=== PATIENT | male | born 1990 | race Caucasian/White ===

== ENCOUNTER 2017-08-12 21:36 | Inpatient (IN) | payer BC, OTHER ==
--- NOTE | 2017-08-12 21:43 | PDOC ---
Attending Attestation - HPI HPI: 08/12/17 21:49 The patient is a 27 year old male with a significant PMH of isolated panic attack (2014) who presents to the emergency department via EMS with SVT shortly prior to arrival. The patient reports lying down to go to sleep when he felt his heart racing with associated diaphoresis and midsternal chest pressure with associated tingling in the left arm. He denies any family cardiac history. Allergies: NKA PCP: None reported. - Physicial Exam PE: 08/12/17 21:49 GENERAL: Well developed, well nourished. Awake and alert. No acute distress. HEENT: Normocephalic, atraumatic. PERRLA, EOMI. No conjunctival pallor. Sclera are non- icteric. Moist mucous membranes. Oropharynx is clear. NECK: Supple. Full ROM. No JVD. Carotid pulses 2+ and symmetric, without bruits. No thyromegaly. No lymphadenopathy. CARDIOVASCULAR: Regular rate and rhythm. No murmurs, rubs, or gallops. Distal pulses are 2+ and symmetric. PULMONARY: No evidence of respiratory distress. Lungs clear to auscultation bilaterally. No wheezing, rales or rhonchi. ABDOMINAL: Soft. Non-tender. Non-distended. No rebound or guarding. No organomegaly. Normoactive bowel sounds. MUSCULOSKELETAL Normal range of motion at all joints. No bony deformities or tenderness. No CVA tenderness. EXTREMITIES: No cyanosis. No clubbing. No edema. No calf tenderness. SKIN: Warm and dry. Normal capillary refill. No rashes. No jaundice. NEUROLOGICAL: Alert, awake, appropriate. Cranial nerves 2-12 intact. No deficits to light touch and temperature in face, upper extremities and lower extremities. No motor deficits in the in face, upper extremities and lower extremities. Normoreflexic in the upper and lower extremities. Normal speech. Toes are downgoing bilaterally. Gait is normal without ataxia. PSYCHIATRIC: Cooperative. Good eye contact. Appropriate mood and affect. <Anand Vanessa - Last Filed: 08/12/17 22:04> - Resident Resident Name: Armando Lu - ED Attending Attestation I have performed the following: I have examined & evaluated the patient, The case was reviewed & discussed with the resident, I agree w/resident's findings & plan, Exceptions are as noted - Medical Decision Making 08/12/17 23:37 Pt will be admitted to Tele Obs for further evaluation <Dillon Luevano - Last Filed: 08/12/17 23:37> Heart Score/ECG Review #1 08/12/17 22:04 Vent rate 106 bpm Sinus tachycardia Otherwise normal ECG <Anand Vanessa - Last Filed: 08/12/17 22:04>
[2017-08-12] MEDS ORDERED: ADENOSINE 6 MG/2 ML VIAL IVPUSH ONE ×2 (21:51→21:52)
--- NOTE | 2017-08-12 22:13 | PDOC ---
History of Present Illness - General Chief Complaint: Chest Pain Stated Complaint: SVT Time Seen by Provider: 08/12/17 21:44 - History of Present Illness Initial Comments: 27 year old previously healthy male BIBEMS after sudden onset palpitations, diaphoresis, chest pain, and left arm numbness. Patient states that he was about to go to bed then had this sudden onset, non radiating 8/10 central chest pressure with some left arm numbness. EMS was immediately called and arrived within 20 minutes. They pushed 6 of adenosine after recognizing SVT in the upper 100s/ low 200s. 6 did not break his rhythm so another 12 was administer with successful break of SVT to sinus rhythm at 150s. On presentation to our ED he was in the upper 90s-low 100s apparently sinus with pressures in the 130s and SATing 99% on RA. He had not active complaints. Has never had this before and denies drug or significant EtOH use. Smokes cigars 2-3 x weekly. He has had a panic attack that was very different than this in 2015. His family history does not reveal cardiac pathologies or sudden unexplained . Denies recent fevers, chills, nausea vomiting, diarrhea, constipation, SOB, or other sick symptoms. 08/12/17 21:56 Past History - Past Medical History Allergies/Adverse Reactions: Allergies Allergy/AdvReac Type Severity Reaction Status Date / Time No Known Allergies Allergy Verified 08/12/17 21:39 Home Medications: Ambulatory Orders NK [No Known Home Medication] 08/12/17 - Suicide/Smoking/Psychosocial Hx Smoking History: Never smoked Information on smoking cessation initiated: No Hx Alcohol Use: No Drug/Substance Use Hx: No Review of Systems - Review of Systems Constitutional: Yes: Diaphoresis. No: Chills, Fever, Loss of Appetite HEENTM: No: Eye Pain, Blurred Vision Respiratory: No: Cough, Shortness of Breath, Wheezing Cardiac (ROS): Yes: Chest Pain, Irregular Heart Rate, Palpitations. No: Edema, Lightheadedness ABD/GI: No: Constipated, Diarrhea, Vomiting, Indigestion : No: Burning, Dysuria, Discharge Musculoskeletal: No: Back Pain, Joint Pain Integumentary: No: Bruising, Lesions, Lumps Neurological: Yes: Paresthesia. No: Headache, Numbness Psychiatric: Yes: Anxiety, Other (History of one previous panic attack). No: Depression Endocrine: No: Excessive Sweating *Physical Exam - Vital Signs Last Vital Signs Temp Pulse Resp BP Pulse Ox 102 H 16 139/84 96 08/12/17 21:39 08/12/17 21:39 08/12/17 21:39 08/12/17 21:39 - Physical Exam General Appearance: Yes: Nourished, Appropriately Dressed. No: Apparent Distress HEENT: positive: EOMI, [place], Normal ENT Inspection, Normal Voice Neck: positive: Trachea midline, Normal Thyroid, Supple. negative: Tender, Rigid Respiratory/Chest: positive: Lungs Clear, Normal Breath Sounds. negative: Chest Tender, Respiratory Distress, Accessory Muscle Use Cardiovascular: positive: Regular Rhythm, Tachycardia. negative: Regular Rate Gastrointestinal/Abdominal: positive: Normal Bowel Sounds, Flat, Soft. negative : Tender Musculoskeletal: positive: Normal Inspection Extremity: positive: Normal Capillary Refill, Normal Inspection, Normal Range of Motion. negative: Tender Integumentary: positive: Normal Color, Dry, Warm Neurologic: positive: domestic helper II-XII NML intact, Fully Oriented, Alert, Normal Mood/ Affect, Normal Response, Motor Strength 5/5 ED Treatment Course - LABORATORY CBC & Chemistry Diagram: 08/12/17 22:20 08/12/17 22:20 Medical Decision Making - Medical Decision Making 27 year old male with no PMH presenting in broken SVT (NSR) after 6 and subsequent 12 adenosine by EMS. Patient has no cardiac risk factors and labs significant for slight WBC with troponin of 0.12. Will admit to tele obs for further cardiac observation. 08/12/17 23:28 Signed out patient to Dr. Guevara for tele obs. 08/12/17 23:39 *DC/Admit/Observation/Transfer Diagnosis at time of Disposition: SVT (supraventricular tachycardia) - Discharge Dispostion Condition at time of disposition: Improved Admit: Yes - Referrals - Patient Instructions - Post Discharge Activity
[2017-08-12 22:30] LABS: BASO % 1.3 % (0-2.0); EOS % 1.3 % (0-4.5); HEMATOCRIT 42.4 % (35.4-49); HEMOGLOBIN 13.9 GM/dL (11.7-16.9); LYMPH % 28.5 % (8-40); MCH 29.7 pg (25.7-33.7); MCHC 32.8 g/dl (32.0-35.9); MEAN CELL VOLUME 90.5 fl (80-96); MEAN PLT VOLUME 9.1 fl (7.5-11.1); MONO % 6.9 % (3.8-10.2); PLATELET COUNT 335 K/MM3 (134-434); RBC 4.68 M/mm3 (4.00-5.60); RDW 13.2 % (11.9-15.9); WHITE BLOOD COUNT 12.3 K/mm3 (4.0-10.0)
[2017-08-12 22:43] LABS: INR 0.93 (0.82-1.09); PROTHROMBIN TIME (PATIENT) 10.5 SEC (9.98-11.88)
[2017-08-12 23:13] LABS: ANION GAP 9 (8-16); BILIRUBIN,TOTAL 0.7 mg/dL (0.2-1.0); BLOOD UREA NITROGEN 16 mg/dL (7-18); CALCIUM 9.3 mg/dL (8.5-10.1); CHLORIDE 107 mmol/L (98-107); CO2 25 mmol/L (21-32); CREATININE 0.8 mg/dL (0.7-1.3); GLUCOSE,RANDOM 95 mg/dL (74-106); MAGNESIUM 2.2 mg/dL (1.8-2.4); POTASSIUM 4.2 mmol/L (3.5-5.1); SGOT/AST 17 U/L (15-37); SGPT/ALT 52 U/L (12-78); SODIUM 141 mmol/L (136-145); TOT PROT 7.8 g/dl (6.4-8.2)
[2017-08-12 23:15] LABS: ALK PHOS 122 U/L (45-117)
--- NOTE | 2017-08-12 23:39 | PN ---
Teaching Attending Note Name of Resident: Karime Schilling ATTENDING PHYSICIAN STATEMENT I saw and evaluated the patient. I reviewed the resident's note and discussed the case with the resident. I agree with the resident's findings and plan as documented. SUBJECTIVE: 27 M with No PMHX who BIBA after palpitations while lying in bed. States he had chest pain and L. arm numbness. States pain was more of a pressure and 8/10. EMS was called and pushed Adenosine 6 for SVT upto 200s. They were unable to break the rhythem so they administered 12. Denies any drug use. No family hx. of sudden . States he feels ok now and denies any chest pain, pressure or shortness of breath. No N/V/D. Denies any fevers or chills. OBJECTIVE: Physical: VS: Vital Signs Period Temp Pulse Resp BP Sys/Dunne Pulse Ox Last 24 Hr 102 16 139/84 96 GEN:NAD, Obese male, resting in bed, AA0X3 HEENT: NCAT, PERRL, throat without erythema or exudates CARD: S tach S1, S2 RESP: CTAB ABD: BS X4, NTD to palption EXT:- C/C/e CBCD WBC 12.3 K/mm3 (4.0-10.0) H 08/12/17 22:20 RBC 4.68 M/mm3 (4.00-5.60) 08/12/17 22:20 Hgb 13.9 GM/dL (11.7-16.9) 08/12/17 22:20 Hct 42.4 % (35.4-49) 08/12/17 22:20 MCV 90.5 fl (80-96) 08/12/17 22:20 MCHC 32.8 g/dl (32.0-35.9) 08/12/17 22:20 RDW 13.2 % (11.9-15.9) 08/12/17 22:20 Plt Count 335 K/MM3 (134-434) 08/12/17 22:20 MPV 9.1 fl (7.5-11.1) 08/12/17 22:20 CMP Sodium 141 mmol/L (136-145) 08/12/17 22:20 Potassium 4.2 mmol/L (3.5-5.1) 08/12/17 22:20 Chloride 107 mmol/L (98-107) 08/12/17 22:20 Carbon Dioxide 25 mmol/L (21-32) 08/12/17 22:20 Anion Gap 9 (8-16) 08/12/17 22:20 BUN 16 mg/dL (7-18) 08/12/17 22:20 Creatinine 0.8 mg/dL (0.7-1.3) 08/12/17 22:20 Creat Clearance w eGFR > 60 (>60) 08/12/17 22:20 Random Glucose 95 mg/dL (74-106) 08/12/17 22:20 Calcium 9.3 mg/dL (8.5-10.1) 08/12/17 22:20 Total Bilirubin 0.7 mg/dL (0.2-1.0) 08/12/17 22:20 AST 17 U/L (15-37) 08/12/17 22:20 ALT 52 U/L (12-78) 08/12/17 22:20 Alkaline Phosphatase 122 U/L (45-117) H 08/12/17 22:20 Total Protein 7.8 g/dl (6.4-8.2) 08/12/17 22:20 Albumin 4.0 g/dl (3.4-5.0) 08/12/17 22:20 CARDIAC ENZYMES Creatine Kinase 142 IU/L (39-308) 08/12/17 22:20 Troponin I 0.12 ng/ml (0.00-0.05) H 08/12/17 22:20 EKG: STach 106 QtC 430 ASSESSMENT AND PLAN: 27 M with no Pmhx who presents with SVT, being admitted for inc. troponin 1.) SVT - S/P Adenosine X2 converted to NSR - Echo - Cardiology consult - Tele - Electrolytes 2.) Troponin Elevation - Most Likely Demand - Trend Trop/Ekg 3.) Dvt Ppx - SCDs Place in Obs-Tele
[2017-08-12] MEDS ORDERED: ASPIRIN 81 MG CHEWABLE TABLETS PO ONE (23:40)
[2017-08-12] MEDS ORDERED: ASPIRIN 81 MG CHEWABLE TABLETS ONE (23:51)
[2017-08-13 00:22] LABS: URINE APPEARANCE CLEAR; URINE BILIRUBIN NEGATIVE (NEGATIVE); URINE BLOOD NEGATIVE (NEGATIVE); URINE COLOR LTYELLOW; URINE GLUCOSE (UA) NEGATIVE (NEGATIVE); URINE KETONE NEGATIVE (NEGATIVE); URINE LEUK ESTERASE NEGATIVE (NEGATIVE); URINE NITRITE NEGATIVE (NEGATIVE); URINE PROTEIN NEGATIVE (NEGATIVE); URINE UROBILINOGEN NEGATIVE mg/dL (0.2-1.0)
--- NOTE | 2017-08-13 00:45 | HP ---
CHIEF COMPLAINT: chest pain, palpitating HISTORY OF PRESENT ILLNESS: 27 y/o obese, smoker male with no PMH came to hospital with a complaint of chest pain, palpitations and numbness right arm which started while he was going to bed, pain was 5/10 in intensity, burning type, non radiating, continuous, got better after adenosine. Pain was associated with diaphoresis palpitation and numbness of left arm. Palpitations lasted for 20 min which also got better after medication given by ems. He also reports numbness in left arm lasted for around 20 min and than got better itself. Denies shortness of breath, lightheadedness, dizziness, nausea, vomiting , burning micturation, change in frequency of urination. Denies loss of weight. He also reports he drank 5 cups of coffee today. Also reports he has anxiety attack in 2014 bu it was different. EKG brought by ems shows svt. EKG in hospital after getting adenosin shows sinus tachycardia ER course was notable for: (1)cbc, cmp, aspirin (2)adenosin was given by ems (3) Recent Travel: no PAST MEDICAL HISTORY: no PAST SURGICAL HISTORY:no Social History: Smokin-4 cigars a week Alcohol:ocassional Drugs: no Family History: parents healthy, grand mother had pacemaker at age of 70 Allergies No Known Allergies Allergy (Verified 08/12/17 21:39) HOME MEDICATIONS: Home Medications Medication Instructions Recorded NK [No Known Home Medication] 08/12/17 REVIEW OF SYSTEMS CONSTITUTIONAL: Absent: fever, chills, diaphoresis, generalized weakness, HEENT: Absent: rhinorrhea, nasal congestion, throat pain, CARDIOVASCULAR: Absent: , syncope, irregular heart rate, lightheadedness, peripheral edema RESPIRATORY: Absent: cough, shortness of breath, dyspnea with exertion, orthopnea, wheezing, stridor, hemoptysis GASTROINTESTINAL: Absent: abdominal pain, abdominal distension, nausea, vomiting, diarrhea, constipation, melena, hematochezia GENITOURINARY: Absent: dysuria, frequency, urgency, hesitancy, hematuria, flank pain, genital pain ENDOCRINE: Absent: unexplained weight gain, unexplained weight loss, heat intolerance, cold intolerance NEUROLOGIC: Absent: headache, focal weakness or paresthesias, dizziness, unsteady gait, PSYCHIATRIC: Absent: anxiety, depression PHYSICAL EXAMINATION Vital Signs - 24 hr 08/12/17 21:39 Pulse Rate 102 H Respiratory 16 Rate Blood Pressure 139/84 O2 Sat by Pulse 96 Oximetry (%) GENERAL: Awake, alert, and fully oriented, in no acute distress. obese HEAD: Normal with no signs of trauma. EYES: Pupils equal, round and reactive to light, extraocular movements intact, sclera anicteric, conjunctiva clear. No lid lag. EARS, NOSE, THROAT: Ears normal, nares patent, oropharynx clear without exudates. Moist mucous membranes. NECK: Normal range of motion, supple without lymphadenopathy, JVD, or masses. LUNGS: Breath sounds equal, clear to auscultation bilaterally. No wheezes, and no crackles. No accessory muscle use. HEART: Regular rate and rhythm, normal S1 and S2 without murmur, rub or gallop. ABDOMEN: Soft, nontender, not distended, normoactive bowel sounds, no guarding, no rebound, no masses. MUSCULOSKELETAL: Normal range of motion at all joints. No bony deformities or tenderness. UPPER EXTREMITIES: 2+ pulses, warm, well-perfused. No cyanosis. No clubbing. No peripheral edema. LOWER EXTREMITIES: warm, well-perfused. No calf tenderness. No peripheral edema. NEUROLOGICAL: Cranial nerves II-XII intact. Normal speech. Normal gait. PSYCHIATRIC: Cooperative. Good eye contact. SKIN: Warm, dry, Laboratory Results - last 24 hr 08/12/17 08/12/17 08/12/17 22:20 22:20 22:20 WBC 12.3 H RBC 4.68 Hgb 13.9 Hct 42.4 MCV 90.5 MCH 29.7 MCHC 32.8 RDW 13.2 Plt Count 335 MPV 9.1 Neutrophils % 62.0 Lymphocytes % 28.5 Monocytes % 6.9 Eosinophils % 1.3 Basophils % 1.3 PT with INR 10.50 INR 0.93 Sodium 141 Potassium 4.2 Chloride 107 Carbon Dioxide 25 Anion Gap 9 BUN 16 Creatinine 0.8 Creat Clearance w eGFR > 60 Random Glucose 95 Calcium 9.3 Magnesium 2.2 Total Bilirubin 0.7 AST 17 ALT 52 Alkaline Phosphatase 122 H Creatine Kinase 142 Troponin I 0.12 H B-Natriuretic Peptide Total Protein 7.8 Albumin 4.0 08/12/17 22:20 WBC RBC Hgb Hct MCV MCH MCHC RDW Plt Count MPV Neutrophils % Lymphocytes % Monocytes % Eosinophils % Basophils % PT with INR INR Sodium Potassium Chloride Carbon Dioxide Anion Gap BUN Creatinine Creat Clearance w eGFR Random Glucose Calcium Magnesium Total Bilirubin AST ALT Alkaline Phosphatase Creatine Kinase Troponin I B-Natriuretic Peptide 7.79 Total Protein Albumin ASSESSMENT/PLAN: 27 y/o obese, smoker male with no PMH came to hospital with a complaint of chest pain, palpitations and numbness right arm. Found to have SVT and elevated trop i. SVT - S/P Adenosine X2 converted to NSR - registered nurse cardiac telemetry - echo - cardiolog consult - trend tropi - lipid profile. - tsh - hba1c - carotid Doppler - monitor vitals - urine toxicology. - advised to cut down caffeine Elevated trop i likely from demand ischemia trend estrada Obesity likely from sedentary life style and over eating. Fluid: orally allowed electrolyte; repeat in am nutrition: low cholesterol and low fat diet. dvt pro: scd gi pro: pepcid . Dispo; admit tele Visit type - Emergency Visit Emergency Visit: Yes Care time: The patient presented to the Emergency Department on the above date and was hospitalized for further evaluation of their emergent condition. - New Patient This patient is new to me today: Yes Date on this admission: 08/13/17 - Critical Care Critical Care patient: No
[2017-08-13 01:01] LABS: COCAINE, UR NEGATIVE ng/ml (CUTOFF=300); METHADONE, UR NEGATIVE ng/ml (CUTOFF=300); OPIATES, URI NEGATIVE ng/ml (CUTOFF=300); PHENCYCLIDINE,URINE NEGATIVE ng/ml (CUTOFF=25); URINE AMPHETAMINES NEGATIVE ng/ml (CUTOFF=500); URINE BARBITURATES NEGATIVE ng/ml (CUTOFF=200); URINE BENZODIAZEPINES NEGATIVE ng/ml (CUTOFF=200)
--- NOTE | 2017-08-13 07:27 | CON.CARD ---
Consult Consult Specialty:: cardiology Reason for Consultation:: arrhythmia (SVT) - History of Present Illness History of Present Illness: The patient is a 27 year old male with a significant PMH of isolated panic attack (2014) who presents to the emergency department via EMS with SVT shortly prior to arrival. The patient reports lying down to go to sleep when he felt his heart racing with associated diaphoresis and midsternal chest pressure with associated tingling in the left arm. He denies any family cardiac history. - History Source History Provided By: Patient, Family Member, Medical Record Limitations to Obtaining History: No Limitations - Past Medical History Pulmonary: Yes: Sleep Apnea (rule out). No: Asthma Psych: Yes: Anxiety, Panic Endocrine: Yes: Hypothyroidism (r/o; mildly elevated TSH.) - Alcohol/Substance Use Hx Alcohol Use: No - Smoking History Smoking history: Never smoked - Social History Usual Living Arrangement: With Spouse Home Medications - Allergies Allergies/Adverse Reactions: Allergies Allergy/AdvReac Type Severity Reaction Status Date / Time No Known Allergies Allergy Verified 08/12/17 21:39 - Home Medications Home Medications: Ambulatory Orders NK [No Known Home Medication] 08/12/17 Family Disease History - Family Disease History Family History: Denies Review of Systems - Review of Systems Constitutional: reports: No Symptoms Eyes: reports: No Symptoms HENT: reports: No Symptoms Neck: reports: No Symptoms Cardiovascular: reports: Palpitations Respiratory: reports: No Symptoms Vital Signs: Vital Signs Temperature 97.9 F 08/13/17 03:12 Pulse Rate 82 08/13/17 03:12 Respiratory Rate 18 08/13/17 03:12 Blood Pressure 136/90 08/13/17 03:12 O2 Sat by Pulse Oximetry (%) 97 08/13/17 03:12 - Other Data Labs, Other Data: CBC, BMP 08/12/17 22:20 INR, PTT INR 0.93 (0.82-1.09) 08/12/17 22:20 Troponin, BNP 08/12/17 08/12/17 22:20 22:20 Troponin I 0.12 H B-Natriuretic Peptide 7.79 Troponin, BNP 08/12/17 08/12/17 22:20 22:20 Troponin I 0.12 H B-Natriuretic Peptide 7.79 Problem List - Problems (1) Obesity Assessment/Plan: 200 lbs at 20 yrs old; now 330 lbs. Code(s): E66.9 - OBESITY, UNSPECIFIED (2) SVT (supraventricular tachycardia) Assessment/Plan: Pt has had brief episodes of palpitations a few time in the past, but never for more than a few seconds until this episode (which lasted about 15 minutes). F/u on telemetry. F/u TNI serially (mildly increased on admission). Multiple CAD risks (obese; sedentary; ?HTN--initially elevated in ER). Pt should lower caffeine intake, especially on an empty stomach. F/u ECHO for LVEF, chamber sizes, valve status, wall motion. Stress treadmill test in am if TNI does no increase appreciably from present 0.12-->0.16. Will consdier starting a beta gregorio or dihydropyridine Ca2+ gregorio after stress test. Pt may also benefit from EP evaluation. Code(s): I47.1 - SUPRAVENTRICULAR TACHYCARDIA (3) Generalized anxiety disorder with panic attacks Assessment/Plan: His mother also suffers from panic attacks. Pt had a severe attack a fe years ago; since then, he gets anxious (high stress at work; does not sleep much), but has not had another panic attack. Code(s): F41.1 - GENERALIZED ANXIETY DISORDER; F41.0 - PANIC DISORDER [EPISODIC PAROXYSMAL ANXIETY] (4) Excessive caffeine intake Code(s): Z91.89 - [facility] PERSONAL RISK FACTORS, NOT ELSEWHERE CLASSIFIED (5) Elevated troponin I level Assessment/Plan: mildly increased TNI; f/u seriallly. F/u on telemetry. Code(s): R74.8 - ABNORMAL LEVELS OF OTHER SERUM ENZYMES (6) Sleep apnea Assessment/Plan: Obese. Pt's says he sometimes seems to be breathing uncomfortably while asleep. Consider sleep studies. The importance of losing weight (and its possible association with sleep apnea) was discussed. Code(s): G47.30 - SLEEP APNEA, UNSPECIFIED (7) Sedentary lifestyle Assessment/Plan: commercial real estate associate; walks short distances throughout the day, and sometimes takes stairs; otherwise, no formal exercise. His weight, which was about 200 lbs when he was 20 yrs old, is now 330 lbs. F/u TFTs (TSH mildly elevated). Code(s): Z91.89 - OTH PERSONAL RISK FACTORS, NOT ELSEWHERE CLASSIFIED (8) Insomnia Assessment/Plan: sleeps only a few hours. Code(s): G47.00 - INSOMNIA, UNSPECIFIED
[2017-08-13 08:13] LABS: ALBUMIN 3.8 g/dl (3.4-5.0); ANION GAP 11 (8-16); BLOOD UREA NITROGEN 13 mg/dL (7-18); CALCIUM 8.6 mg/dL (8.5-10.1); CHLORIDE 107 mmol/L (98-107); CHOLESTEROL 153 mg/dL (50-200); CO2 22 mmol/L (21-32); CREATININE 0.8 mg/dL (0.7-1.3); GLUCOSE,RANDOM 86 mg/dL (74-106); LDL CHOLESTEROL (ONLY SJRH) 95 mg/dL (5-100); MAGNESIUM 2.1 mg/dL (1.8-2.4); PHOSPHOROUS 4.7 mg/dL (2.5-4.9); POTASSIUM 4.4 mmol/L (3.5-5.1); SGOT/AST 17 U/L (15-37); SGPT/ALT 46 U/L (12-78); SODIUM 140 mmol/L (136-145); TOT PROT 7.3 g/dl (6.4-8.2); TRIGLYCERIDES 111 mg/dL (35-160)
[2017-08-13 08:14] LABS: ALK PHOS 107 U/L (45-117); HDL CHOLESTEROL 52 mg/dL (40-60)
--- NOTE | 2017-08-13 08:42 | PN ---
Physical Exam: SUBJECTIVE: Patient seen and examined by me this AM - No overnight events. Pt denies any CP, sob, N/V, neck pain, arm tingling/ numbness, LAW/lightheadness/vision changes, peripheral weakness/numbness, neuro symptoms. Pt with no complaints. Will be seen by cardiology and received cardiac work-up. AM Trop uptrending slightly from 0.12 -> 0.16, likely demand ischemia. Cardiology consulted; echo and carotid dopplers pending. TSH mildly elevated at 3.99 OBJECTIVE: Vital Signs Intake & Output 08/10/17 08/11/17 08/12/17 08/13/17 23:59 23:59 23:59 23:59 Weight 150 kg Period Temp Pulse Resp BP Sys/Dunne Pulse Ox Last 24 Hr 97.6 F-98.6 F 69-102 16-18 111-139/58-90 96-98 GENERAL: Young man, obese, awake, alert, and fully oriented, in no acute distress. HEAD: Normal with no signs of trauma. EYES: PERRL, extraocular movements intact, sclera anicteric, conjunctiva clear. No ptosis. ENT: Ears normal, nares patent, oropharynx clear without exudates, moist mucous membranes. NECK: Trachea midline, full range of motion, supple. LUNGS: Breath sounds equal, clear to auscultation bilaterally, no wheezes, no crackles, no accessory muscle use. HEART: Regular rate and rhythm, S1, S2 without murmur, rub or gallop. ABDOMEN: Soft, nontender, nondistended, normoactive bowel sounds, no guarding, no rebound, no hepatosplenomegaly, no masses. EXTREMITIES: 2+ pulses, warm, well-perfused, no edema. NEUROLOGICAL: Cranial nerves II through XII grossly intact. Normal speech, gait not observed. PSYCH: Normal mood, normal affect. SKIN: Warm, dry, normal turgor, no rashes or lesions noted Laboratory Results - last 24 hr CBC, BMP 08/12/17 22:20 08/13/17 06:30 08/12/17 08/12/17 08/12/17 22:20 22:20 22:20 WBC 12.3 H RBC 4.68 Hgb 13.9 Hct 42.4 MCV 90.5 MCH 29.7 MCHC 32.8 RDW 13.2 Plt Count 335 MPV 9.1 Neutrophils % 62.0 Lymphocytes % 28.5 Monocytes % 6.9 Eosinophils % 1.3 Basophils % 1.3 PT with INR 10.50 INR 0.93 Sodium 141 Potassium 4.2 Chloride 107 Carbon Dioxide 25 Anion Gap 9 BUN 16 Creatinine 0.8 Creat Clearance w eGFR > 60 Random Glucose 95 Hemoglobin A1c % Calcium 9.3 Phosphorus Magnesium 2.2 Total Bilirubin 0.7 AST 17 ALT 52 Alkaline Phosphatase 122 H Creatine Kinase 142 Troponin I 0.12 H B-Natriuretic Peptide Total Protein 7.8 Albumin 4.0 Triglycerides Cholesterol Total LDL Cholesterol HDL Cholesterol TSH Urine Color Urine Appearance Urine pH Ur Specific Iaeger Urine Protein Urine Glucose (UA) Urine Ketones Urine Blood Urine Nitrite Urine Bilirubin Urine Urobilinogen Ur Leukocyte Esterase Opiates Screen Methadone Screen Barbiturate Screen Phencyclidine Screen Ur Amphetamines Screen MDMA (Ecstasy) Screen Benzodiazepines Screen Cocaine Screen U Marijuana (THC) Screen 08/12/17 08/12/17 08/12/17 22:20 22:22 23:00 WBC RBC Hgb Hct MCV MCH MCHC RDW Plt Count MPV Neutrophils % Lymphocytes % Monocytes % Eosinophils % Basophils % PT with INR INR Sodium Potassium Chloride Carbon Dioxide Anion Gap BUN Creatinine Creat Clearance w eGFR Random Glucose Hemoglobin A1c % Calcium Phosphorus Magnesium Total Bilirubin AST ALT Alkaline Phosphatase Creatine Kinase Troponin I B-Natriuretic Peptide 7.79 Total Protein Albumin Triglycerides Cholesterol Total LDL Cholesterol HDL Cholesterol TSH 3.99 H Urine Color Ltyellow Urine Appearance Clear Urine pH 5.0 Ur Specific Iaeger 1.020 Urine Protein Negative Urine Glucose (UA) Negative Urine Ketones Negative Urine Blood Negative Urine Nitrite Negative Urine Bilirubin Negative Urine Urobilinogen Negative Ur Leukocyte Esterase Negative Opiates Screen Methadone Screen Barbiturate Screen Phencyclidine Screen Ur Amphetamines Screen MDMA (Ecstasy) Screen Benzodiazepines Screen Cocaine Screen U Marijuana (THC) Screen 08/12/17 08/13/17 08/13/17 23:00 06:30 06:30 WBC RBC Hgb Hct MCV MCH MCHC RDW Plt Count MPV Neutrophils % Lymphocytes % Monocytes % Eosinophils % Basophils % PT with INR INR Sodium 140 Potassium 4.4 Chloride 107 Carbon Dioxide 22 Anion Gap 11 BUN 13 Creatinine 0.8 Creat Clearance w eGFR > 60 Random Glucose 86 Hemoglobin A1c % 5.6 Calcium 8.6 Phosphorus 4.7 Magnesium 2.1 Total Bilirubin 1.0 D AST 17 ALT 46 Alkaline Phosphatase 107 Creatine Kinase Troponin I 0.16 H D B-Natriuretic Peptide Total Protein 7.3 Albumin 3.8 Triglycerides 111 Cholesterol 153 Total LDL Cholesterol 95 HDL Cholesterol 52 TSH Urine Color Urine Appearance Urine pH Ur Specific Iaeger Urine Protein Urine Glucose (UA) Urine Ketones Urine Blood Urine Nitrite Urine Bilirubin Urine Urobilinogen Ur Leukocyte Esterase Opiates Screen Negative Methadone Screen Negative Barbiturate Screen Negative Phencyclidine Screen Negative Ur Amphetamines Screen Negative MDMA (Ecstasy) Screen Negative Benzodiazepines Screen Negative Cocaine Screen Negative U Marijuana (THC) Screen Negative No micro EKG 08/12 - Sinus Tachy, rate 106, NAD, QTC 448, No ST/TW changes CXR 08/12 - Impression: Shallow inspiration with low lung volumes. No evidence of airspace consolidation or pleural effusion. Carotid doppler 08/12 - Impression: Unremarkable examination without evidence of hemodynamically significant stenosis, bilaterally. ECHO 08/13 - LV normal size and function; RV normal; Trace TR ASSESSMENT/PLAN: 27 yo man, obese smoker, w/ no significant pmh who presented with chest pain/ tightness, palpitations and right arm numbness, found to have SVT in field, with correction to NSR with multiple administrations of adenosine. Pt found to have slightly elevated trops, likely secondary to demand ischemia. #SVT - likely secondary to caffeine intake vs. hypoxic 2/2 MIGUE; TSH wnl 3.99; Utox negative; UA normal; Converted to NSR after adenosine x2 - cardiac monitoring - f/u echo results - cardiology consulted, recs appreciated; will go for stress test tomorrow AM, then discharge w/ outpt f/u - Trops 0.12-> 0.16 -> 0.06; likely demand ischemia; EKG with no ischemic changes - lipid profile nrml - HBA1C 5.6 - lifestyle modification; dieting, exercise, reduce caffeine intake - Vitals Q4h #Elevated troponins - 3rd trop downtrended to 0.06; likely demand ischemia - no further trops #Obesity - lipid profile normal - exercise, dieting - referral for PCP #MIGUE - Will require outpt sleep study #FEN PO hydration Daily BMPs Cardiac diet PPX SCDs Telemetry, full code Plan discussed with attending, Dr. Calderon Villeda, PGY1 Visit type - Emergency Visit Emergency Visit: Yes ED Registration Date: 08/13/17 Care time: The patient presented to the Emergency Department on the above date and was hospitalized for further evaluation of their emergent condition. - New Patient This patient is new to me today: Yes Date on this admission: 08/13/17 - Critical Care Critical Care patient: No
--- NOTE | 2017-08-13 12:06 | EKG ---
Test Reason : Blood Pressure : / mmHG Vent. Rate : 106 BPM Atrial Rate : 106 BPM P-R Int : 144 ms QRS Dur : 082 ms QT Int : 338 ms P-R-T Axes : 027 008 -02 degrees QTc Int : 448 ms SINUS TACHYCARDIA OTHERWISE NORMAL ECG NO PREVIOUS ECGS AVAILABLE Confirmed by ANKIT VILLANUEVA MD ([id number]) on 08/13/2017 12:06:02 PM Referred By: Confirmed By:ANKIT VILLANUEVA MD
--- NOTE | 2017-08-13 13:53 | PN ---
Teaching Attending Note Name of Resident: Rodolfo Villeda ATTENDING PHYSICIAN STATEMENT I saw and evaluated the patient. I reviewed the resident's note and discussed the case with the resident. I agree with the resident's findings and plan as documented. SUBJECTIVE:currently asymptomatic. states his palpitations ended when EMS arrived and gave medications. (adenosine). states no repeated episodes since. no episodes in the past. states he been very sleep deprived the past week as he has been under increased stress this past week. also drank 5 cups of coffee yesterday with the last once being 2H prior to the event. typically drinks 2-3 cups/day. denies CP, SOB, fever, chillls, N/V/c/D. very sedentary at baseline. has not exercised in several months but when he has in the past never experienced it in the past. no cardiac workup inthe past. grandmother had PPM inserted unclear why but was in her 70's. no sudden cardiac OBJECTIVE: Last Vital Signs Temp Pulse Resp BP Pulse Ox 97.6 F 83 16 127/78 97 08/13/17 07:45 08/13/17 07:45 08/13/17 07:45 08/13/17 07:45 08/13/17 07:45 General NAD CV S1 S2 RRR no murmur/rub/gallop no caroid bruits no chest wall tendderness Lungs CTA B/L no wheezing/rales/rhonchi ASSESSMENT AND PLAN: 27yo M with PMH moribd obesity presented to the ER wtih palpitations and found to be in SVT 1. SVT- possible hypoxic induced from obesity with underlying MIGUE vs caffeine induced. TSH WNL. no signs of infection, Utox negative. currently in sinus rhythm. echo pending. Cardio consulted 2. Tropinemia- Flat trend of troponins, 0.12 to 0.16. liekly demand ischemia from tachycardia. NPO tonight for stress in AM 3. Morbid obesity- college and career counselor on lifestyle changes and need to loose weight. excercise and healthy eating habits 4. Suspected MIGUE- polysomography as outpatient 5. anticipate d/c tomorrow
[2017-08-13 21:13] VITALS: BMI 38.5
[2017-08-13] MEDS ORDERED: ACETAMINOPHEN 500 MG TABLET (FP) PO ONE (22:00)
--- NOTE | 2017-08-14 05:25 | PN ---
Physical Exam: SUBJECTIVE: Patient seen and examined by me this AM - No major events overnight. Pt slept well, good appetite. No further episodes of chest pain or palpitations, SOB. HR in 80s. NPO after midnight for stress test in AM and discharge home. Afebrile. Denies fever/chills, CP, N/V, abdominal pain, LAW/lightheadness, peripheral edema. No events on tele. OBJECTIVE: Vital Signs Intake & Output 08/11/17 08/12/17 08/13/17 08/14/17 23:59 23:59 23:59 23:59 Intake Total 840 Balance 840 Weight 150 kg 136.078 kg Period Temp Pulse Resp BP Sys/Dunne Pulse Ox Last 24 Hr 97.3 F-98.7 F 69-89 16-24 111-143/58-90 96-100 GENERAL: Young man, obese, awake, alert, and fully oriented, in no acute distress. Drowsy HEAD: Normal with no signs of trauma. EYES: PERRL, extraocular movements intact, sclera anicteric, conjunctiva clear. No ptosis. ENT: Ears normal, nares patent, oropharynx clear without exudates, moist mucous membranes. NECK: Trachea midline, full range of motion, supple. LUNGS: Breath sounds equal, clear to auscultation bilaterally, no wheezes, no crackles, no accessory muscle use. HEART: Regular rate and rhythm, S1, S2 without murmur, rub or gallop. ABDOMEN: Globular. Soft, nontender, nondistended, normoactive bowel sounds, no guarding, no rebound, no hepatosplenomegaly, no masses. EXTREMITIES: 2+ pulses, warm, well-perfused, no edema. NEUROLOGICAL: Cranial nerves II through XII grossly intact. Normal speech, gait not observed. PSYCH: Normal mood, normal affect. SKIN: Warm, dry, normal turgor, no rashes or lesions noted Laboratory Results - last 24 hr CBC, BMP CBC, BMP 08/14/17 06:20 08/13/17 06:30 08/12/17 22:20 08/13/17 06:30 08/13/17 08/13/17 08/13/17 06:30 06:30 06:30 Sodium 140 Potassium 4.4 Chloride 107 Carbon Dioxide 22 Anion Gap 11 BUN 13 Creatinine 0.8 Creat Clearance w eGFR > 60 Random Glucose 86 Hemoglobin A1c % 5.6 Calcium 8.6 Phosphorus 4.7 Magnesium 2.1 Total Bilirubin 1.0 D AST 17 ALT 46 Alkaline Phosphatase 107 Troponin I 0.16 H D Total Protein 7.3 Albumin 3.8 Triglycerides 111 Cholesterol 153 Total LDL Cholesterol 95 HDL Cholesterol 52 Free T4 1.05 Cancelled 08/13/17 13:00 Sodium Potassium Chloride Carbon Dioxide Anion Gap BUN Creatinine Creat Clearance w eGFR Random Glucose Hemoglobin A1c % Calcium Phosphorus Magnesium Total Bilirubin AST ALT Alkaline Phosphatase Troponin I 0.06 H D Total Protein Albumin Triglycerides Cholesterol Total LDL Cholesterol HDL Cholesterol Free T4 No micro EKG 08/12 - Sinus Tachy, rate 106, NAD, QTC 448, No ST/TW changes CXR 08/12 - Impression: Shallow inspiration with low lung volumes. No evidence of airspace consolidation or pleural effusion. Carotid doppler 08/12 - Impression: Unremarkable examination without evidence of hemodynamically significant stenosis, bilaterally. ECHO 08/13 - LV normal size and function; RV normal; Trace TR ASSESSMENT/PLAN: 27 yo man, obese smoker, w/ no significant pmh who presented with chest pain/ tightness, palpitations and right arm numbness, found to have SVT in field, with correction to NSR with multiple administrations of adenosine. Pt found to have slightly elevated trops, likely secondary to demand ischemia. #SVT - likely secondary to caffeine intake vs. hypoxic 2/2 MIGUE; TSH wnl 3.99; Utox negative; UA normal; Converted to NSR after adenosine x2 - cardiac monitoring - f/u echo results - cardiology consulted, recs appreciated; will go for stress test tomorrow AM, then discharge w/ outpt f/u - Trops 0.12-> 0.16 -> 0.06; likely demand ischemia; EKG with no ischemic changes - lipid profile nrml - HBA1C 5.6 - lifestyle modification; dieting, exercise, reduce caffeine intake - Vitals Q4h #Elevated troponins - 3rd trop downtrended to 0.06; likely demand ischemia - no further trops #Obesity - lipid profile normal - exercise, dieting - referral for PCP #MIGUE - Will require outpt sleep study #FEN PO hydration Daily BMPs Cardiac diet PPX SCDs Telemetry, full code Plan discussed with attending, Dr. Calderon Villeda, PGY1
[2017-08-14 07:43] LABS: BASO % 0.8 % (0-2.0); EOS % 3.2 % (0-4.5); HEMATOCRIT 43.7 % (35.4-49); HEMOGLOBIN 14.2 GM/dL (11.7-16.9); LYMPH % 33.8 % (8-40); MCH 29.6 pg (25.7-33.7); MCHC 32.6 g/dl (32.0-35.9); MEAN CELL VOLUME 90.9 fl (80-96); MEAN PLT VOLUME 8.9 fl (7.5-11.1); MONO % 7.9 % (3.8-10.2); NEUT % 54.3 % (42.8-82.8); PLATELET COUNT 325 K/MM3 (134-434); RBC 4.81 M/mm3 (4.00-5.60); RDW 13.2 % (11.9-15.9); WHITE BLOOD COUNT 8.9 K/mm3 (4.0-10.0)
[2017-08-14 14:51] VITALS: BP 134/76; PULSE 72; TEMP 98
--- NOTE | 2017-08-14 15:31 | PN ---
Teaching Attending Note Name of Resident: Rodolfo Villeda ATTENDING PHYSICIAN STATEMENT I saw and evaluated the patient. I reviewed the resident's note and discussed the case with the resident. I agree with the resident's findings and plan as documented. SUBJECTIVE:asymptomatic. denies Cp, SOB, fever, chills, N/V/C/D states he did not feel palpitations at 10am this AM where he was sinus tachycardia on the monitor. stated he ws getting changed at that time. also sinus tachycardia at 1500 pt was answering work related emails. no symptoms OBJECTIVE: Last Vital Signs Temp Pulse Resp BP Pulse Ox 98 F 72 14 134/76 100 08/14/17 14:00 08/14/17 14:00 08/14/17 14:00 08/14/17 14:00 08/14/17 09:00 General NAD ASSESSMENT AND PLAN: 27yo M with PMH moribd obesity presented to the ER [facility] palpitations and found to be in SVT 1. SVT- possible hypoxic induced from obesity with underlying MIGUE vs caffeine induced. some episodes of sinus tachycardia on the monitor. not related to any symptoms during these times. echo normal 2. Tropinemia- Flat trend of troponins, 0.12 to 0.16. liekly demand ischemia from tachycardia. stress test negative 3. Morbid obesity- assessment counselor on lifestyle changes and need to loose weight. exercise and healthy eating habits 4. Suspected MIGUE- polysomography as outpatient. instructed to f/u with Dr Lua 5. counseled in detail with present about lifestyle modifications including reducing caffeine intake, stress reduction and healthy eating habits and exercise. explained increased risk in mortality without making these modifications given his young age and multiple risk factors. stressed importance of follow up [facility] primary care, cardio and pulmonary. verbalized understanding and agreement
--- NOTE | 2017-08-14 16:20 | DS ---
Physical Exam: SUBJECTIVE: Patient seen and examined by me this AM - No major events overnight. Pt slept well, good appetite. No further episodes of chest pain or palpitations, SOB. HR in 80s. NPO after midnight for stress test in AM and discharge home. Afebrile. Denies fever/chills, CP, N/V, abdominal pain, LAW/lightheadness, peripheral edema. No events on tele. - Stress ECHO normal. Will f/u with cardiology in one week. OBJECTIVE: Vital Signs Intake & Output 08/11/17 08/12/17 08/13/17 08/14/17 23:59 23:59 23:59 23:59 Intake Total 840 310 Balance 840 310 Weight 150 kg 136.078 kg 157.306 kg Period Temp Pulse Resp BP Sys/Dunne Pulse Ox Last 24 Hr 97.3 F-98.7 F 68-83 14-24 115-146/63-92 98-100 PHYSICAL EXAM GENERAL: Young man, obese, awake, alert, and fully oriented, in no acute distress. Drowsy HEAD: Normal with no signs of trauma. EYES: PERRL, extraocular movements intact, sclera anicteric, conjunctiva clear. No ptosis. ENT: Ears normal, nares patent, oropharynx clear without exudates, moist mucous membranes. NECK: Trachea midline, full range of motion, supple. LUNGS: Breath sounds equal, clear to auscultation bilaterally, no wheezes, no crackles, no accessory muscle use. HEART: Regular rate and rhythm, S1, S2 without murmur, rub or gallop. ABDOMEN: Globular. Soft, nontender, nondistended, normoactive bowel sounds, no guarding, no rebound, no hepatosplenomegaly, no masses. EXTREMITIES: 2+ pulses, warm, well-perfused, no edema. NEUROLOGICAL: Cranial nerves II through XII grossly intact. Normal speech, gait not observed. PSYCH: Normal mood, normal affect. SKIN: Warm, dry, normal turgor, no rashes or lesions noted LABS Laboratory Results - last 24 hr CBC, BMP 08/14/17 06:20 08/13/17 06:30 08/14/17 06:20 WBC 8.9 RBC 4.81 Hgb 14.2 Hct 43.7 MCV 90.9 MCH 29.6 MCHC 32.6 RDW 13.2 Plt Count 325 MPV 8.9 Neutrophils % 54.3 Lymphocytes % 33.8 Monocytes % 7.9 Eosinophils % 3.2 D Basophils % 0.8 No micro EKG 08/12 - Sinus Tachy, rate 106, NAD, QTC 448, No ST/TW changes CXR 08/12 - Impression: Shallow inspiration with low lung volumes. No evidence of airspace consolidation or pleural effusion. Carotid doppler 08/12 - Impression: Unremarkable examination without evidence of hemodynamically significant stenosis, bilaterally. ECHO 08/13 - LV normal size and function; RV normal; Trace TR Stress Echo 08/14 - Normal stress echo HOSPITAL COURSE: Pre-hospital course: 27 y/o obese, smoker male with no PMH came to hospital with a complaint of chest pain, palpitations and numbness right arm which started while he was going to bed, pain was 5/10 in intensity, burning type, non radiating, continuous, got better after adenosine. Pain was associated with diaphoresis palpitation and numbness of left arm. Palpitations lasted for 20 min which also got better after medication given by ems. He also reports numbness in left arm lasted for around 20 min and than got better itself. Denies shortness of breath, lightheadedness, dizziness, nausea, vomiting, burning micturation, change in frequency of urination. Denies loss of weight. He also reports he drank 5 cups of coffee today. Also reports he has anxiety attack in 2014 bu it was different. Hospital course: In ED, Pt Date of Admission:08/13/17 Date of Discharge: 08/14/17 Pt is medically stable and cleared for discharge with outpt f/u with cardiology and PCP in one week. Discharge Summary Reason For Visit: SUPRAVENTRICULAR TACHYCARDIA Current Active Problems Elevated troponin I level (Acute) Excessive caffeine intake (Acute) Generalized anxiety disorder with panic attacks (Acute) Insomnia (Acute) Obesity (Acute) SVT (supraventricular tachycardia) (Acute) Sedentary lifestyle (Acute) Sleep apnea (Acute) Condition: Improved - Instructions Diet, Activity, Other Instructions: During your stay you were treated for rapid heart rate and elevated cardiac enzymes. Medications: No new medications were added to your home regimen Please continue taking all other home medication as previously prescribed. Follow-ups: You have been provided a referral to follow-up with Dr. Sewell as your new primary care provider. Contact information for the [facility] has been provided. Please call to schedule an appointment with him in one week. During your stay at [facility], you were seen by one of our preferred tandem mill roller's, Dr. Latham. Please follow-up with him in his clinic in one week. His contact information has been provided. You received an exercise stress test in the hospital to evaluate the function of your heart. It is recommended to be further evaluated to see if you suffer from sleep apnea. Please follow up with Dr Lua for further testing. Activity: Please increase your exercise routine to 5x/week of moderate exercise for at least 30 minutes. Please avoid foods high in saturated fats. Please follow-up for further dietary and exercise recommendations with your primary care provider. Limit the number of caffeine beverages you consume in a day as this can lead to your irregular heartbeat. Please return to the hospital if you experience any of the following symptoms: - Persistent chest pain, unrelieved by rest - Pain/numbness in your arm, neck or back that does not resolve - Persistent palpitations, shortness of breath - Any new or concerning symptoms Referrals: Jacek Latham MD [Staff Physician] - 1 Week Ruben Lua MD [Staff Physician] - Bennie Harden MD [Staff Physician] - 1 Week (You were seen by Dr. Sewell during your stay. Please follow up with him in Dr. Harden's clinic. Contact information has been provided. ) Disposition: HOME - Home Medications Comprehensive Discharge Medication List: Ambulatory Orders NK [No Known Home Medication] 08/12/17
--- NOTE | 2017-08-14 17:53 | PN ---
Progress Note, Physician Chief Complaint: Pt A&Ox34; and mother are at bedside. Pt is asymptomatic; the night was uneventful. History of Present Illness: The patient is a 27 year old white male with a significant PMH of isolated panic attack (2014) who presents to the emergency department via EMS with SVT shortly prior to arrival. The patient reports lying down to go to sleep when he felt his heart racing with associated diaphoresis and midsternal chest pressure with associated tingling in the left arm. He denies any family cardiac history. - Objective Vital Signs: Vital Signs Temperature 98 F 08/14/17 14:00 Pulse Rate 72 08/14/17 14:00 Respiratory Rate 14 08/14/17 14:00 Blood Pressure 134/76 08/14/17 14:00 O2 Sat by Pulse Oximetry (%) 100 08/14/17 09:00 Constitutional: Yes: Calm Eyes: Yes: WNL HENT: Yes: WNL Neck: Yes: WNL Cardiovascular: Yes: WNL Respiratory: Yes: WNL Gastrointestinal: Yes: WNL ...Rectal Exam: Yes: Deferred Genitourinary: No: Anuria Breast(s): Yes: WNL Musculoskeletal: Yes: WNL Extremities: Yes: WNL Edema: No Peripheral Pulses WNL: Yes Integumentary: Yes: WNL Neurological: Yes: WNL Psychiatric: Yes: WNL Labs: CBC, BMP 08/14/17 06:20 08/13/17 06:30 INR, PTT INR 0.93 (0.82-1.09) 08/12/17 22:20 - ....Imaging Other: Image Reviewed (telemtry: NSR;l no arrhythmias) Problem List - Problems (1) Obesity Assessment/Plan: 200 lbs at 20 yrs old; now 330 lbs. Code(s): E66.9 - OBESITY, UNSPECIFIED (2) SVT (supraventricular tachycardia) Assessment/Plan: Pt has had brief episodes of palpitations a few time in the past, but never for more than a few seconds until this episode (which lasted about 15 minutes). F/u on telemetry. F/u TNI serially (mildly increased on admission). Multiple CAD risks (obese; sedentary; ?HTN--initially elevated in ER). Pt should lower caffeine intake, especially on an empty stomach. F/u ECHO for LVEF, chamber sizes, valve status, wall motion. Stress treadmill ECJO today. Will consdier starting a beta gregorio or dihydropyridine Ca2+ gregorio after stress test. Pt may also benefit from EP evaluation. Code(s): I47.1 - SUPRAVENTRICULAR TACHYCARDIA (3) Generalized anxiety disorder with panic attacks Assessment/Plan: His mother also suffers from panic attacks. Pt had a severe attack a fe years ago; since then, he gets anxious (high stress at work; does not sleep much), but has not had another panic attack. Code(s): F41.1 - GENERALIZED ANXIETY DISORDER; F41.0 - PANIC DISORDER [EPISODIC PAROXYSMAL ANXIETY] (4) Excessive caffeine intake Code(s): Z91.89 - [facility] PERSONAL RISK FACTORS, NOT ELSEWHERE CLASSIFIED (5) Elevated troponin I level Assessment/Plan: mildly increased TNI;seond still elevtated, but decreasing. For stress ECHO. Code(s): R74.8 - ABNORMAL LEVELS OF OTHER SERUM ENZYMES (6) Sleep apnea Code(s): G47.30 - SLEEP APNEA, UNSPECIFIED (7) Sedentary lifestyle Code(s): Z91.89 - OT PERSONAL RISK FACTORS, NOT ELSEWHERE CLASSIFIED (8) Insomnia Code(s): G47.00 - INSOMNIA, UNSPECIFIED
== END 2017-08-14 17:46 | disposition home or self-care (01) | DRG 309 ==
LOC: JER 21:36 → JERBED 23:40 → OBSVTOIN 08-13 00:29 → JERBED 08-13 01:22 → UNDOADMOB 08-13 01:22 → J4W 08-13 17:30
PROVIDERS: ADMIT Internal Medicine; ATTEND Internal Medicine
DX: I47.1 Supraventricular tachycardia (principal); Z68.41 Body mass index [BMI] 40.0-44.9, adult; I24.8 Other forms of acute ischemic heart disease; F17.210 Nicotine dependence, cigarettes, uncomplicated; G47.00 Insomnia, unspecified; G47.33 Obstructive sleep apnea (adult) (pediatric); E66.01 Morbid (severe) obesity due to excess calories; F41.9 Anxiety disorder, unspecified; Z72.89 Other problems related to lifestyle
CPT/HCPCS: 36415; 71045-TC; 80053; 80061; 80307; 81003; 82550; 83036; 83721; 83735; 83880; 84100; 84439; 84443; 84484; 85025; 85610; 93005; 93010; 93306-TC; 93351; 93880-TC; 99285-25; G0378

== ENCOUNTER 2019-03-05 09:14 | Inpatient (IN) | payer BC, OTHER ==
[2019-03-05] MEDS ORDERED: SODIUM CHLORIDE 0.9% 1000 ML INFUS.BAG IV ONE (09:25)
[2019-03-05] MEDS ORDERED: ADENOSINE 6 MG/2 ML VIAL IVPUSH ONE (09:38)
--- NOTE | 2019-03-05 10:05 | PDOC ---
History of Present Illness - General Chief Complaint: Tachycardia Stated Complaint: IRREGULAR HEART BEAT Time Seen by Provider: 03/05/19 09:21 History Source: Patient Exam Limitations: No Limitations - History of Present Illness Initial Comments: 03/05/19 09:58 28 yo male h/o h/o dysrhtymia 1 yr ago, here today c/o racing heart rate, palpitations. heart rate was 216 when EMS arrived. pt states he was playing with his daughter. resting and suddenly felt racing heart beat. called EMS EMS gave adenosine 6mg , follwed by 12 mg and heart rate returned to normal. pt david drug use, no caffeine. no allergy or decongestant meds. does not take any prophylactic medication. h/o syncope or cp or sob during physical activity. no f /c no leg swelling or pain. no h/o pe or dvt. does have recent travel no leg pain. Past History - Past Medical History Allergies/Adverse Reactions: Allergies Allergy/AdvReac Type Severity Reaction Status Date / Time No Known Allergies Allergy Verified 03/05/19 11:40 Home Medications: Ambulatory Orders NK [No Known Home Medication] 08/12/17 Anemia: No Asthma: No Cancer: No Cardiac Disorders: No CVA: No COPD: No CHF: No Dementia: No Diabetes: No GI Disorders: No Disorders: No HTN: No Hypercholesterolemia: No Liver Disease: No Seizures: No Thyroid Disease: No - Surgical History Abdominal Surgery: No Appendectomy: No Cardiac Surgery: No Cholecystectomy: No Lung Surgery: No Neurologic Surgery: No Orthopedic Surgery: No - Suicide/Smoking/Psychosocial Hx Smoking History: Never smoked Cigars Per Day: 1 Hx Alcohol Use: No Drug/Substance Use Hx: No Review of Systems - Review of Systems Constitutional: No: Chills, Diaphoresis HEENTM: No: Eye Pain, Blurred Vision Respiratory: No: Cough, Orthopnea Cardiac (ROS): Yes: Irregular Heart Rate : No: Burning, Dysuria Musculoskeletal: No: Back Pain, Joint Pain All Other Systems: Reviewed and Negative *Physical Exam - Physical Exam Comments: 03/05/19 10:05 awake alert lungs clear bilat heart rrr no mrg abd soft nt nd obese. ext wwp no edema. no calf tenderness. skin warm and dry. 2+ dp/ pt pulses bilat. Heart Score/ECG Review #1 General ECG Interpretation: Sinus Rhythm, Normal Rate (82), Normal Intervals, No acute ischemic changes Compared to previous ECG there are: Other (normal CT interval. QTC 448 normal) ED Treatment Course - LABORATORY CBC & Chemistry Diagram: 03/05/19 09:38 03/05/19 09:38 - RADIOLOGY Radiology Studies Ordered: Category Date Time Status CHEST X-RAY PORTABLE* [RAD] Stat Radiology 03/05/19 09:42 Ordered Medical Decision Making - Medical Decision Making 03/05/19 10:06 28 yo male h/o svt here with episode svt broke by EMS adenosine. differential anemia, electrolyte abnormality. dehydration. plan labs ekg cr. will d/w dr casper. 03/05/19 11:33 d/w dr stone, recommend admission for observation. no medication as of yet. *DC/Admit/Observation/Transfer Diagnosis at time of Disposition: SVT (supraventricular tachycardia) - Discharge Dispostion Decision to Admit order: Yes - Referrals - Patient Instructions - Post Discharge Activity
[2019-03-05 10:20] LABS: BASO % 1.7 % (0-2.0); EOS % 1.4 % (0-4.5); HEMATOCRIT 41.7 % (35.4-49); LYMPH % 31.4 % (8-40); MCH 30.1 pg (25.7-33.7); MCHC 33.6 g/dl (32.0-35.9); MEAN CELL VOLUME 89.6 fl (80-96); MEAN PLT VOLUME 9.4 fl (7.5-11.1); MONO % 7.6 % (3.8-10.2); NEUT % 57.9 % (42.8-82.8); PLATELET COUNT 298 K/MM3 (134-434); RBC 4.65 M/mm3 (4.00-5.60); RDW 13.1 % (11.9-15.9); WHITE BLOOD COUNT 7.6 K/mm3 (4.0-10.0)
[2019-03-05 10:51] LABS: ALBUMIN 3.6 g/dl (3.4-5.0); BILIRUBIN,TOTAL 1.1 mg/dL (0.2-1); BLOOD UREA NITROGEN 13.6 mg/dL (7-18); CREATININE 0.8 mg/dL (0.55-1.3); POTASSIUM 4.2 mmol/L (3.5-5.1)
--- NOTE | 2019-03-05 11:30 | EKG ---
Test Reason : Blood Pressure : / mmHG Vent. Rate : 082 BPM Atrial Rate : 082 BPM P-R Int : 160 ms QRS Dur : 086 ms QT Int : 384 ms P-R-T Axes : 034 010 006 degrees QTc Int : 448 ms NORMAL SINUS RHYTHM NORMAL ECG WHEN COMPARED WITH ECG OF 12-AUG-2017 22:00, NO SIGNIFICANT CHANGE WAS FOUND Confirmed by ANKIT VILLANUEVA MD ([id number]) on 03/05/2019 11:30:31 AM Referred By: Confirmed By:ANKIT VILLANUEVA MD
[2019-03-05 12:00] LABS: MAGNESIUM 2.2 mg/dL (1.8-2.4)
[2019-03-05 12:20] LABS: PROTHROMBIN TIME (PATIENT) 11.8 SEC (9.7-13.0)
--- NOTE | 2019-03-05 14:24 | CON.CARD ---
Consult Consult Specialty:: Cardiology Reason for Consultation:: SVT - History of Present Illness History of Present Illness: 28 yo male h/o h/o dysrhtymia 1 yr ago, here today c/o racing heart rate, palpitations. heart rate was 216 when EMS arrived. pt states he was playing with his daughter. resting and suddenly felt racing heart beat. called EMS EMS gave adenosine 6mg , follwed by 12 mg and heart rate returned to normal. pt david drug use, no caffeine. no allergy or decongestant meds. does not take any prophylactic medication. h/o syncope or cp or sob during physical activity. no f /c no leg swelling or pain. no h/o pe or dvt. does have recent travel no leg pain. - History Source History Provided By: Patient, Medical Record - Past Medical History Cardio/Vascular: Yes: Other (SVT) Pulmonary: Yes: Sleep Apnea (rule out). No: Asthma Psych: Yes: Anxiety, Panic Endocrine: Yes: Hypothyroidism (r/o; mildly elevated TSH.) - Alcohol/Substance Use Hx Alcohol Use: No - Smoking History Smoking history: Never smoked - Social History Usual Living Arrangement: With Spouse Home Medications - Allergies Allergies/Adverse Reactions: Allergies Allergy/AdvReac Type Severity Reaction Status Date / Time No Known Allergies Allergy Verified 03/05/19 11:40 - Home Medications Home Medications: Ambulatory Orders NK [No Known Home Medication] 08/12/17 Review of Systems - Review of Systems Constitutional: reports: No Symptoms Eyes: reports: No Symptoms HENT: reports: No Symptoms Neck: reports: No Symptoms Cardiovascular: reports: Palpitations Gastrointestinal: reports: No Symptoms Genitourinary: reports: No Symptoms Breasts: reports: No Symptoms Reported Musculoskeletal: reports: No Symptoms Integumentary: reports: No Symptoms Neurological: reports: No Symptoms Endocrine: reports: No Symptoms Hematology/Lymphatic: reports: No Symptoms Psychiatric: reports: No Symptoms Vital Signs: Vital Signs Temperature 97.6 F 03/05/19 09:15 Pulse Rate 86 03/05/19 09:15 Respiratory Rate 16 03/05/19 09:15 Blood Pressure 125/79 03/05/19 09:15 O2 Sat by Pulse Oximetry (%) 97 03/05/19 09:15 Constitutional: Yes: Well Nourished, No Distress, Calm Eyes: Yes: WNL, Conjunctiva Clear, EOM Intact HENT: Yes: WNL, Atraumatic, Normocephalic Neck: Yes: WNL, Supple, Trachea Midline Respiratory: Yes: WNL, Regular, CTA Bilaterally Gastrointestinal: Yes: WNL, Normal Bowel Sounds Renal/: Yes: WNL Cardiovascular: Yes: WNL, Regular Rate and Rhythm Musculoskeletal: Yes: WNL Extremities: Yes: WNL Integumentary: Yes: WNL Neurological: Yes: WNL, Alert, Oriented ...Motor Strength: WNL Psychiatric: Yes: WNL, Alert, Oriented - Other Data Labs, Other Data: CBC, BMP 03/05/19 09:38 03/05/19 09:38 INR, PTT INR 1.00 (0.83-1.09) 03/05/19 11:18 Troponin, BNP 03/05/19 09:38 Troponin I 0.03 Troponin, BNP 03/05/19 09:38 Troponin I 0.03 Imaging - Results Chest X-ray: Image Reviewed (no i/e) EKG: Image Reviewed (nsr) Problem List - Problems (1) SVT (supraventricular tachycardia) Code(s): I47.1 - SUPRAVENTRICULAR TACHYCARDIA (2) Elevated troponin I level Code(s): R74.8 - ABNORMAL LEVELS OF OTHER SERUM ENZYMES (3) Excessive caffeine intake Code(s): Z91.89 - [facility] PERSONAL RISK FACTORS, NOT ELSEWHERE CLASSIFIED (4) Generalized anxiety disorder with panic attacks Code(s): F41.1 - GENERALIZED ANXIETY DISORDER; F41.0 - PANIC DISORDER [EPISODIC PAROXYSMAL ANXIETY] (5) Insomnia Code(s): G47.00 - INSOMNIA, UNSPECIFIED (6) Obesity Code(s): E66.9 - OBESITY, UNSPECIFIED (7) Sedentary lifestyle Code(s): Z91.89 - [facility] PERSONAL RISK FACTORS, NOT ELSEWHERE CLASSIFIED (8) Sleep apnea Code(s): G47.30 - SLEEP APNEA, UNSPECIFIED Assessment/Plan svt - recurrent terminated by adenosine morbid obesity elevated TNIs ? doubt nonstemi - most likely supply demend due to SVT however premature CAD has to be r/o Plan telemetry serial ce ASA BB ECHO ECHO st lipid profile svt ablation as outp. d/w patient PMD and the will f/u
--- NOTE | 2019-03-05 15:00 | HP ---
CHIEF COMPLAINT: palpitations, dizziness PCP: none Marketing Support Assistant: Dr. Latham HISTORY OF PRESENT ILLNESS: 28 yom with PMhx of morbid obesity (BMI 43), SVT in when unremarkable 2D echo/stress echo, was playing with son today when had sudden onset of palpitations, dizziness, noted in SVT 200s, that resolved with adenosine 6 mg followed by 12 mg. Has been asymptomatic since. Patient reports regular follow up with Dr. Latham and no episodes since his last hospital stay in 08/2017. No caffeine intake today, no recent ETOH intake, decongestants, fevers, chills, URI like illness, decreased oral intake, abdominal pain, or urinary symptoms. ER course was notable for: (1) 1 L NS IVF bolus Recent Travel: to [place] [facility], [place], returned 1.5 weeks ago PAST MEDICAL HISTORY: morbid obesity (BMI 43), SVT in , suspected MIGUE PAST SURGICAL HISTORY: Denies Social History: Smokin-2 cigars per week Alcohol: occasional Drugs: denies independent in ADLs, employed, lives with family Family History: No h/o early CAD/SCD in family Allergies No Known Allergies Allergy (Verified 03/05/19 11:40) HOME MEDICATIONS: Home Medications Medication Instructions Recorded NK [No Known Home Medication] 08/12/17 REVIEW OF SYSTEMS 12 point ROS done, per HPI. PHYSICAL EXAMINATION Vital Signs - 24 hr 03/05/19 09:15 Temperature 97.6 F Pulse Rate 86 Respiratory 16 Rate Blood Pressure 125/79 O2 Sat by Pulse 97 Oximetry (%) Intake & Output 03/02/19 03/03/19 03/04/19 03/05/19 23:59 23:59 23:59 23:59 Weight 335 lb GENERAL: Awake, alert, and fully oriented, in no acute distress, morbidly obese. HEAD: Normal with no signs of trauma. EYES: Pupils equal, round and reactive to light, extraocular movements intact, sclera anicteric, conjunctiva clear. No lid lag. EARS, NOSE, THROAT: Ears normal, nares patent, oropharynx clear without exudates. Moist mucous membranes. NECK: Normal range of motion, supple without lymphadenopathy, JVD, or masses. LUNGS: Breath sounds equal, clear to auscultation bilaterally. No wheezes, and no crackles. No accessory muscle use. HEART: Regular rate and rhythm, normal S1 and S2 without murmur, rub or gallop. ABDOMEN: Soft, nontender, not distended, normoactive bowel sounds, no guarding, no rebound, no masses. No hepatomegaly or splenomegaly. MUSCULOSKELETAL: Normal range of motion at all joints. No bony deformities or tenderness. No CVA tenderness. UPPER EXTREMITIES: 2+ pulses, warm, well-perfused. No cyanosis. No clubbing. No peripheral edema. LOWER EXTREMITIES: 2+ pulses, warm, well-perfused. No calf tenderness. No peripheral edema. NEUROLOGICAL: AAOx3, facial symmetry, tongue midline, EOMI, PERRL, Cranial nerves II-XII intact. Normal speech. Gait not observed PSYCHIATRIC: Cooperative. Good eye contact. Appropriate mood and affect. SKIN: Warm, dry, normal turgor, no rashes or lesions noted, normal capillary refill. Laboratory Results - last 24 hr 03/05/19 03/05/19 03/05/19 09:38 09:38 11:18 WBC 7.6 RBC 4.65 Hgb 14.0 Hct 41.7 MCV 89.6 MCH 30.1 MCHC 33.6 RDW 13.1 Plt Count 298 MPV 9.4 Absolute Neuts (auto) 4.4 Neutrophils % 57.9 Lymphocytes % 31.4 Monocytes % 7.6 Eosinophils % 1.4 Basophils % 1.7 Nucleated RBC % 0 PT with INR 11.80 INR 1.00 PTT (Actin FS) 39.0 H Sodium 141 Potassium 4.2 Chloride 111 H Carbon Dioxide 23 Anion Gap 8 BUN 13.6 Creatinine 0.8 Est GFR (CKD-EPI)AfAm 140.90 Est GFR (CKD-EPI)NonAf 121.57 Random Glucose 91 Calcium 9.0 Magnesium 2.2 Total Bilirubin 1.1 H AST 21 ALT 49 Alkaline Phosphatase 106 Creatine Kinase 128 Troponin I 0.03 Total Protein 7.0 Albumin 3.6 TSH 2.66 D EKG NSR 82, no acute ST-T changes CXR no acute process ASSESSMENT/PLAN: 28 yom with PMhx of morbid obesity (BMI 43), SVT in when unremarkable 2D echo/stress echo admitted with SVT, that resolved with adenosine by EMS -Supraventricular tachycardia, resolved -Morbid obesity BMI 43 -Suspected MIGUE Plan; s/p adenosine 6 mg followed by 12 mg IV. Now in NSR. Patient asymptomatic. Hold off on standing meds. Cardiology consulted from ED. patient advised outpatient sleep study. Weight loss counseling DVTPPX lovenox Dispo admit to obs telemetry, d/c in 24 hours if no new events. Discussed with patient in detail, all questions answered. Care co-ordinated [facility] ED Total admit time 55 min. Visit type - Emergency Visit Emergency Visit: Yes ED Registration Date: 03/05/19 Care time: The patient presented to the Emergency Department on the above date and was hospitalized for further evaluation of their emergent condition. - New Patient This patient is new to me today: Yes Date on this admission: 03/05/19 - Critical Care Critical Care patient: No
[2019-03-05] MEDS ORDERED: ACETAMINOPHEN 325 MG TABLET (FP) PO PRN (15:01)
[2019-03-05 18:15] VITALS: BMI 44.7
[2019-03-06 07:10] LABS: BASO % 0.8 % (0-2.0); EOS % 2.1 % (0-4.5); HEMATOCRIT 41.5 % (35.4-49); LYMPH % 35.4 % (8-40); MCH 30.5 pg (25.7-33.7); MCHC 33.8 g/dl (32.0-35.9); MEAN CELL VOLUME 90.3 fl (80-96); MEAN PLT VOLUME 9.4 fl (7.5-11.1); MONO % 6.5 % (3.8-10.2); NEUT % 55.2 % (42.8-82.8); PLATELET COUNT 312 K/MM3 (134-434); RBC 4.59 M/mm3 (4.00-5.60); RDW 13.4 % (11.9-15.9); WHITE BLOOD COUNT 8.5 K/mm3 (4.0-10.0)
[2019-03-06 07:40] LABS: MAGNESIUM 2.3 mg/dL (1.8-2.4); PHOSPHOROUS 3.8 mg/dL (2.5-4.9)
--- NOTE | 2019-03-06 09:02 | PN ---
Progress Note, Physician History of Present Illness: 28 yo male h/o h/o dysrhtymia 1 yr ago, here today c/o racing heart rate, palpitations. heart rate was 216 when EMS arrived. pt states he was playing with his daughter. resting and suddenly felt racing heart beat. called EMS EMS gave adenosine 6mg , follwed by 12 mg and heart rate returned to normal. pt david drug use, no caffeine. no allergy or decongestant meds. does not take any prophylactic medication. h/o syncope or cp or sob during physical activity. no f /c no leg swelling or pain. no h/o pe or dvt. does have recent travel no leg pain. PMhx of morbid obesity (BMI 43), SVT in when unremarkable 2D echo/ stress echo, was playing with son today when had sudden onset of palpitations, dizziness, noted in SVT 200s, that resolved with adenosine 6 mg followed by 12 mg. Has been asymptomatic since. Patient reports regular follow up with Dr. Latham and no episodes since his last hospital stay in 08/2017. No caffeine intake today, no recent ETOH intake, decongestants, fevers, chills, URI like illness, decreased oral intake, abdominal pain, or urinary symptoms. - Current Medication List Current Medications: Active Medications Acetaminophen (Tylenol -) 650 mg PO Q6H PRN PRN Reason: HEADACHE Enoxaparin Sodium (Lovenox -) 40 mg SQ DAILY KYLE - Objective Vital Signs: Vital Signs Temperature 97.7 F 03/06/19 06:00 Pulse Rate 64 03/06/19 06:00 Respiratory Rate 20 03/06/19 06:00 Blood Pressure 135/74 03/06/19 06:00 O2 Sat by Pulse Oximetry (%) 97 03/05/19 17:30 Eyes: Yes: WNL, Conjunctiva Clear, EOM Intact HENT: Yes: WNL, Atraumatic, Normocephalic Neck: Yes: WNL, Supple, Trachea Midline Cardiovascular: Yes: WNL, Regular Rate and Rhythm Respiratory: Yes: WNL, Regular, CTA Bilaterally Gastrointestinal: Yes: WNL, Normal Bowel Sounds Genitourinary: Yes: WNL Musculoskeletal: Yes: WNL Extremities: Yes: WNL Edema: No Integumentary: Yes: WNL Neurological: Yes: WNL, Alert, Oriented ...Motor Strength: WNL Psychiatric: Yes: WNL Labs: CBC, BMP 03/06/19 06:15 03/05/19 09:38 INR, PTT INR 1.00 (0.83-1.09) 03/05/19 11:18 Problem List - Problems (1) SVT (supraventricular tachycardia) Code(s): I47.1 - SUPRAVENTRICULAR TACHYCARDIA (2) Elevated troponin I level Code(s): R74.8 - ABNORMAL LEVELS OF OTHER SERUM ENZYMES (3) Excessive caffeine intake Code(s): Z91.89 - [facility] PERSONAL RISK FACTORS, NOT ELSEWHERE CLASSIFIED (4) Generalized anxiety disorder with panic attacks Code(s): F41.1 - GENERALIZED ANXIETY DISORDER; F41.0 - PANIC DISORDER [EPISODIC PAROXYSMAL ANXIETY] (5) Insomnia Code(s): G47.00 - INSOMNIA, UNSPECIFIED (6) Obesity Code(s): E66.9 - OBESITY, UNSPECIFIED (7) Sedentary lifestyle Code(s): Z91.89 - [facility] PERSONAL RISK FACTORS, NOT ELSEWHERE CLASSIFIED (8) Sleep apnea Code(s): G47.30 - SLEEP APNEA, UNSPECIFIED Assessment/Plan svt - recurrent terminated by adenosine morbid obesity elevated TNIs ? doubt nonstemi - most likely supply demend due to SVT however premature CAD has to be r/o Plan telemetry serial ce ASA BB ECHO ECHO st lipid profile svt ablation as outp. d/w patient PMD and the will f/u
[2019-03-06] MEDS ORDERED: ASPIRIN 325 MG ENTERIC COATED TABLET (FP) PO ONE (09:30)
[2019-03-06] MEDS ORDERED: metoPROLOL SUCCINATE 25 MG TAB.SR.24H (FP) PO SCH (10:00)
[2019-03-06] MEDS ORDERED: ENOXAPARIN NA (PORCINE) 40 MG/0.4 ML DISP.SYRIN SQ SCH (10:00)
[2019-03-06 10:42] VITALS: BP 131/99; PULSE 75; TEMP 98
--- NOTE | 2019-03-06 12:41 | DS ---
Physical Exam: SUBJECTIVE: Patient seen and examined, no further palpitations, dizziness, dyspnea or concerns overnight. OBJECTIVE: Vital Signs Period Temp Pulse Resp BP Sys/Dunne Pulse Ox Last 24 Hr 97.7 F-98.2 F 64-77 20-20 105-135/55-99 97-98 PHYSICAL EXAM GENERAL: morbidly obese, in no acute distress in bed HEENT: EOMI, PERRL Neck: soft, supple, no JVD CVS:S1S2 regular Chest: CTAB, no rales or wheezing Abdomen:soft, obese, NT Extremities: no edema LABS Laboratory Results - last 24 hr 03/05/19 03/05/19 03/05/19 09:38 17:25 20:50 WBC RBC Hgb Hct MCV MCH MCHC RDW Plt Count MPV Absolute Neuts (auto) Neutrophils % Lymphocytes % Monocytes % Eosinophils % Basophils % Nucleated RBC % Sodium 141 Potassium 4.2 Chloride 111 H Carbon Dioxide 23 Anion Gap 8 BUN 13.6 Creatinine 0.8 Est GFR (CKD-EPI)AfAm 140.90 Est GFR (CKD-EPI)NonAf 121.57 Random Glucose 91 Calcium 9.0 Phosphorus Magnesium 2.2 Total Bilirubin 1.1 H AST 21 ALT 49 Alkaline Phosphatase 106 Creatine Kinase 128 Troponin I 0.03 0.22 H 0.14 H Total Protein 7.0 Albumin 3.6 TSH 2.66 D 03/06/19 03/06/19 06:15 06:15 WBC 8.5 RBC 4.59 Hgb 14.0 Hct 41.5 MCV 90.3 MCH 30.5 MCHC 33.8 RDW 13.4 Plt Count 312 MPV 9.4 Absolute Neuts (auto) 4.7 Neutrophils % 55.2 Lymphocytes % 35.4 Monocytes % 6.5 Eosinophils % 2.1 Basophils % 0.8 Nucleated RBC % 0 Sodium Potassium Chloride Carbon Dioxide Anion Gap BUN Creatinine Est GFR (CKD-EPI)AfAm Est GFR (CKD-EPI)NonAf Random Glucose Calcium Phosphorus 3.8 Magnesium 2.3 Total Bilirubin AST ALT Alkaline Phosphatase Creatine Kinase Troponin I 0.05 Total Protein Albumin TSH HOSPITAL COURSE: Date of Admission:03/06/19 Date of Discharge: 03/06/19 Minutes to complete discharge: 41 Discharge Summary Reason For Visit: SUPRAVENTRICULAR TACHYCARDIA Hospital Course: 28 yom with PMhx of morbid obesity (BMI 43), SVT in when unremarkable 2D echo/stress echo, was playing with son today when had sudden onset of palpitations, dizziness, noted in SVT 200s, that resolved with adenosine 6 mg followed by 12 mg. He was watched on telemetry with overnight asymptomatic bradycardia. His trop peaked at 0.22 and trended down. He was seen by cardiology and recommend ongoing telemetry monitoring with repeat 2D echo and stress echocardiogram. However patient wanted to leave AMA, risks of leaving including recurrent tachycardia, progression of heart attack, heart failure, arrhythmia and were explained. patient relayed full understanding of the risks and wanted to leave against medical advice. He is encouraged close follow up with PCP/industrial organizational psychologist and outpatient sleep study. Condition: Stable - Instructions Diet, Activity, Other Instructions: Please note that you were admitted with fast heart rate. You blood tests to suggest heart attack was positive. You have been advised continuous hospital monitoring of your heart rhythm and additional testing including echocardiogram and stress test by the industrial organizational psychologist and eventual evaluation for ablation of your irregular rhythm. Please note that you will be leaving hospital against medical advice. Risks of leaving including, recurrent fast heart rate, progression of heart attack, heart failure, arrhythmia and . It is very important to have close follow up with medical doctor and industrial organizational psychologist Also you have been advised outpatient sleep study. Disposition: AGAINST MEDICAL ADVICE - Home Medications Comprehensive Discharge Medication List: Ambulatory Orders NK [No Known Home Medication] 08/12/17 This patient is new to me today: No Emergency Visit: Yes ED Registration Date: 03/06/19 Care time: The patient presented to the Emergency Department on the above date and was hospitalized for further evaluation of their emergent condition. Critical Care patient: No - Discharge Referral Referred to [facility] Med [facility] No
[2019-03-07] MEDS ORDERED: ASPIRIN COATED 81 MG TABLET.EC PO SCH (10:00)
== END 2019-03-06 11:30 | disposition left against medical advice (07) | DRG 309 ==
LOC: JER 09:14 → JERBED 12:37 → J4W 17:47 → OBSVTOIN 03-06 09:19
PROVIDERS: ADMIT Hospitalist; ATTEND Hospitalist
DX: I47.1 Supraventricular tachycardia (principal); Z68.41 Body mass index [BMI] 40.0-44.9, adult; E66.01 Morbid (severe) obesity due to excess calories; R00.1 Bradycardia, unspecified; R74.8 Abnormal levels of other serum enzymes; G47.30 Sleep apnea, unspecified; F41.1 Generalized anxiety disorder; F41.0 Panic disorder [episodic paroxysmal anxiety]; R00.2 Palpitations
CPT/HCPCS: 36415; 71045-TC-FY; 80053; 82550; 83735; 84100; 84443; 84484; 85025; 85610; 85730; 93005; 93010; 99285-25; G0378; J7030

== ENCOUNTER 2022-08-24 18:13 | Emergency (ER) | payer BC, OTHER ==
[2022-08-24 18:20] VITALS: BP 143/88; PULSE 99; RESP 20; TEMP 98.2; BMI 43.6
[2022-08-24] MEDS ORDERED: CLINDAMYCIN 600MG PREMIX IVPB 600 MG/50 ML BAG IVPB ONE ×2 (18:35→18:53)
== END 2022-08-24 20:22 | disposition home or self-care (01) ==
LOC: JER 18:13
PROC: 3E033GC Introduction of Other Therapeutic Substance into Peripheral Vein, Percutaneous Approach (ICD-10-PCS; principal; 2022-08-24)
DX: K04.7 Periapical abscess without sinus (principal)
CPT/HCPCS: 99284-25

== ENCOUNTER 2025-03-03 18:16 | Emergency (ER) | payer BC, OTHER ==
[2025-03-03 18:23] VITALS: BP 123/84; PULSE 105; RESP 16; TEMP 100.6; BMI 43.6
[2025-03-03] MEDS ORDERED: ACETAMINOPHEN 500 MG TABLET (FP) ONE (18:42)
[2025-03-03] MEDS: ACETAMINOPHEN 500 MG TABLET (FP) PO ONE (18:50)
[2025-03-03 19:16] LABS: ABSOLUTE IMMATURE GRANULOCYTES 0.09 x10^3/uL (0.0-0.031); BASOPHILS # 0.05 x10^3/uL (0.01-0.08); EOSINOPHIL % 0.1 % (0.8-7.0); EOSINOPHILS # 0.01 x10^3/uL (0.04-0.54); MCHC 32.8 g/dl (32.3-36.5); MEAN CELL VOLUME 90.3 fl (79.0-92.2); MEAN PLT VOLUME 10.2 fl (9.4-12.4); MONOCYTE # 0.94 x10^3/uL (0.30-0.82); MONOCYTE % 4.8 % (5.3-12.2); RDW 13.3 % (12.0-15.6)
[2025-03-03 19:36] LABS: ALK PHOS 77.0 U/L (45-117); CO2 25.0 mmol/L (21-32); CREATININE 1.1 mg/dl (0.6-1.3); GLUCOSE,RANDOM 121.0 mg/dl (74-106); SGOT/AST 35.0 U/L (15-37); SGPT/ALT 33.0 U/L (7-52); TOT PROT 7.2 g/dl (6.4-8.2)
== END 2025-03-03 21:09 | disposition home or self-care (01) ==
LOC: FER 18:16
DX: J18.9 Pneumonia, unspecified organism (principal); R50.9 Fever, unspecified; R53.83 Other fatigue; R05.9 Cough, unspecified; R11.10 Vomiting, unspecified
CPT/HCPCS: 36415; 71046-TC-FY; 80053; 81003; 81015; 85025; 87086; 87637-QW; 87899; 99284-25